=== PATIENT | male | born 1970 | race Caucasian/White ===

== ENCOUNTER 2020-08-26 09:21 | Day surgery (SDC) | payer BC ==
[~2020-08-26] VITALS: Ht 190.5 cm; Wt 98.9 kg
[~2020-08-26 09:21] MED LIST: BUPIVAcaine/PF 2.5mg/ml (0.25%) 10ml vial ONE; BUPR300T86 PO; MULT-1085 PO; OMEP20CA15 PO; cefazolin/dext.iso 2gm/100ml IV ONE; famotidine 20mg tablet PO ONE; ringers solution, lacted 1,000 ML IV SCH
[2020-08-26 10:00] VITALS: BP 117/75
[2020-08-26] MEDS ORDERED: LIDOcaine 0.5% (5mg/ml) 50ml vial ONE (11:20)
[2020-08-26 12:01] LABS: BASOPHILS # (AUTO) 0.1 X10'3 (0-0.2); BASOPHILS % (AUTO) 1.1 % (0-1); EOSINOPHILS # (AUTO) 0.1 X10'3 (0-0.9); EOSINOPHILS % (AUTO) 1.6 % (0-6); LYMPHOCYTES # (AUTO) 1.4 X10'3 (1.1-4.8); LYMPHOCYTES % (AUTO) 17.7 % (21-51); MEAN CORPUSCULAR HEMOGLOBIN 29.9 PG (27.0-31.0); MEAN CORPUSCULAR HGB CONC 33.6 g/dL (33.0-36.5); MEAN PLATELET VOLUME 7.4 FL (7.4-10.4); MONOCYTES # (AUTO) 0.5 X10'3 (0-0.9); MONOCYTES % (AUTO) 6.7 % (2-12); NEUTROPHILS # (AUTO) 5.6 X10'3 (1.8-7.7); NEUTROPHILS % (AUTO) 72.9 % (42-75); PRE OP HEMATOCRIT 46.3 % (42.0-52.0); PRE OP HEMOGLOBIN 15.5 g/dL (14.0-17.9); PRE OP PLATELET COUNT 290 X10'3 (140-440); RED CELL DISTRIBUTION WIDTH 13.6 % (11.5-14.5)
[2020-08-26] MEDS ORDERED: fentaNYL/PF 50MCG/1 ML 2ML syringe ONE ×2 (12:13→12:58)
[2020-08-26] MEDS ORDERED: midazolam 1 mg/ML 2ml injection ONE (12:14)
--- NOTE | 2020-08-26 12:20 | NUR ---
VISUALIZED COPY OF COVID VACCINE CARD ON PT'S PHONE Addendum: 08/26/20 at 1551 by Aretha Lovell RN Amended: Links added.
[2020-08-26 12:26] LABS: ALBUMIN 3.7 G/DL (3.4-5.0); ALBUMIN/GLOBULIN RATIO 1.2 (1.1-1.5); ALKALINE PHOSPHATASE 76 IU/L (46-116); BLOOD UREA NITROGEN 18 MG/DL (7-18); BUN/CREATININE RATIO 24.7 (5.4-32.0); CALCIUM 8.7 MG/DL (8.5-10.1); CHLORIDE 107 MMOL/L (99-107); CREATININE 0.73 MG/DL (0.60-1.10); PRE OP ALT 43 U/L (30-65); PRE OP ANION GAP 8 (8-16); PRE OP AST 24 U/L (10-37); PRE OP BILIRUB, TOTAL 0.5 MG/DL (0.0-1.0); PRE OP GLUCOSE 100 MG/DL (70-104); PRE OP POTASSIUM 4.1 MMOL/L (3.4-5.1); PRE OP SODIUM 140 MMOL/L (135-145); TOTAL CARBON DIOXIDE 25.4 MMOL/L (24-32); TOTAL PROTEIN 6.8 G/DL (6.4-8.2); eGFR > 90 ML/MIN
[2020-08-26] MEDS ORDERED: BUPIVAcaine/PF 2.5mg/ml (0.25%) 10ml vial ONE (12:59)
[2020-08-26] MEDS ORDERED: propofol inj 20 ML IV ONE ×2 (13:14→13:25)
[2020-08-26] MEDS ORDERED: LIDOcaine 1%/PF 5ML 10 MG/ML VIAL ONE (13:14)
[2020-08-26 13:34] VITALS: BP 128/50
--- NOTE | 2020-08-26 13:34 | NUR ---
Received from OR via jaimie, accompanied by Anesthesiologist Waldemar and report given by Anesthesiolgist. VS WNL pt awake alert and oriented on room air. right UE elevated with pillows and ice pack, moves fingers but no pain. Index finger with splint and dressing around wrist. 20G left wrist IVF LR at 100cc/hr.
[2020-08-26 13:40] VITALS: BP 135/83
[2020-08-26 13:50] VITALS: BP 125/84
[2020-08-26 14:00] VITALS: BP 120/79
[2020-08-26 14:10] VITALS: BP 116/82
--- NOTE | 2020-08-26 14:34 | NUR ---
Pt discharged to vehicle by wheelchair without incident. Pt alert and oriented, dressing remains CDI. Pt and both verbalized understanding of all DC instructions. Dresising remains CDI, meds have been sent to [facility] on [address]. Belongings returned to patient.
== END 2020-08-26 14:34 | disposition home or self-care (01) ==
LOC: PAS 09:21
PROVIDERS: ATTEND Orthopaedic Surgery Hand Surgery
DX: S66.120A Laceration of flexor muscle, fascia and tendon of right index finger at wrist and hand level, initial encounter (principal); F32.9 Major depressive disorder, single episode, unspecified; Z87.891 Personal history of nicotine dependence; Z98.890 Other specified postprocedural states; Z79.899 Other long term (current) drug therapy; W25.XXXA Contact with sharp glass, initial encounter; Y93.89 Activity, other specified; Y92.89 Other specified places as the place of occurrence of the external cause; Y99.8 Other external cause status
CPT/HCPCS: 26350; 36415; 80053; 82948; 85025; J2001; J2250; J2704; J3010; J3490; A4215; A4618; J7120

== ENCOUNTER 2020-09-02 10:22 | Day surgery (SDC) | payer BC ==
[~2020-09-02] VITALS: Ht 190.5 cm; Wt 96.3 kg
[~2020-09-02 10:22] MED LIST changes: -BUPIVAcaine/PF 2.5mg/ml (0.25%) 10ml vial ONE; -MULT-1085 PO
[2020-09-02] MEDS ORDERED: BUPIVAcaine/PF 2.5mg/ml (0.25%) 10ml vial ONE (11:56)
[2020-09-02 12:32] VITALS: BP 142/95
[2020-09-02] MEDS ORDERED: MIDAZolam 1 MG/ML 5ML VIAL ONE (12:34)
[2020-09-02] MEDS ORDERED: fentaNYL/PF 50MCG/1 ML 2ML syringe ONE (12:34)
[2020-09-02] MEDS ORDERED: ROPIVAcaine 0.5% (5mg/ml) 30ml vial ONE (12:34)
[2020-09-02 12:38] VITALS: BP 142/95
[2020-09-02] MEDS ORDERED: dexamethasone sod phosphate 4mg/ml inj. ONE (12:39)
[2020-09-02] MEDS ORDERED: morphine 2 MG/ML inj. syringe IV PRN (13:15)
[2020-09-02] MEDS ORDERED: ringers solution, lacted 1,000 ML IV SCH (13:15)
[2020-09-02] MEDS ORDERED: meperidine/PF 25mg/ml syringe IV PRN ×3 (13:15)
[2020-09-02] MEDS ORDERED: ondansetron/PF 4mg/2ml inj IV PRN (13:15)
[2020-09-02] MEDS ORDERED: proCHLORperazine 10 MG/2 ml inj IV PRN (13:15)
[2020-09-02] MEDS ORDERED: morphine 4 MG/ML inj SYRINge IV PRN (13:15)
[2020-09-02] MEDS ORDERED: propofol inj 20 ML IV ONE (13:45)
[2020-09-02 13:53] VITALS: BP 136/87
--- NOTE | 2020-09-02 13:53 | NUR ---
Received from OR via DEBORAH , accompanied by Anesthesiologist XUAN and report given by Anesthesiolgist. 20G PIV IN LEFT UE RUNNING LR AT 100. DENIES PAIN AT THI S TIME. RIGHT UE IN SPLINT THAT IS CDI, NO DRAINAGE PRESENT AT THIS TIME.VSS Addendum: 09/02/20 at 1409 by Vipin Guido RN, RN Amended: Links added.
[2020-09-02 14:00] VITALS: BP 134/87
[2020-09-02 14:10] VITALS: BP 136/87
--- NOTE | 2020-09-02 14:23 | NUR ---
ALL DISCHARGE CRITERIA HAS BEEN MET. VSS, PAIN AT A TOLERABLE LEVEL, VOIDING AND ABLE TO SAFELY AMBULATE AND TRANSFER SELF. IV TAKEN OUT WITHOUT ANY COMPLICATIONS. ALL DISCHARGE INSTRUCTIONS COVERED WITH PATIENT AND ALL QUESTIONS ANSWERED. PATIENT TAKEN OUT VIA WHEELCHAIR TO PERSONAL VEHICLE WHERE FAMILY/FRIEND DROVE PATIENT HOME. Addendum: 09/02/20 at 1440 by Vipin Guido RN, RN Amended: Links added.
== END 2020-09-02 14:23 | disposition home or self-care (01) ==
LOC: PAS 10:22
PROVIDERS: ATTEND Orthopaedic Surgery Hand Surgery
DX: S66.110D Strain of flexor muscle, fascia and tendon of right index finger at wrist and hand level, subsequent encounter (principal); M19.011 Primary osteoarthritis, right shoulder; F41.8 Other specified anxiety disorders; F32.9 Major depressive disorder, single episode, unspecified; Z87.891 Personal history of nicotine dependence; Z98.890 Other specified postprocedural states; Z79.899 Other long term (current) drug therapy; G89.18 Other acute postprocedural pain; X58.XXXD Exposure to other specified factors, subsequent encounter
CPT/HCPCS: 26373; 64417; 76942; 82948; A6222; J1100; J2250; J2704; J3010; J3490; A4215; A4618; A6449; J2795; J7120